=== PATIENT | female | born 1935 | race Caucasian/White ===

== ENCOUNTER 2018-01-13 09:42 | Emergency (ER) | payer OTHER, BC ==
[2018-01-13 10:16] VITALS: BP 150/76; PULSE 64; TEMP 97.8; BMI 31.2
--- NOTE | 2018-01-13 10:22 | PDOC ---
History of Present Illness - General History Source: Patient Exam Limitations: No Limitations - History of Present Illness Initial Comments: 01/13/18 10:20 The patient is an 82F, unsure of PMH but state she takes nitro and coumadin and has an "irregular heart beat" who presents to the ER after having a fall yesterday. The patient states that she was walking from her kitchen to her bathroom and fell forward, hitting her head and the R side of her body. SHe was unable to stand up. EMS was called and they helped her into her bed but she refused being taken to the hospital. Overnight, she states that her R rib pain has been getting worse. She denies LOC, CP, new SOB, lightheadedness, palpitations, nausea, vomiting, numbness, tingling, or weakness. <Jose Moore - Last Filed: 01/13/18 12:23> <Stephanie Walker - Last Filed: 01/13/18 12:45> - General Chief Complaint: Injury Stated Complaint: FALL Time Seen by Provider: 01/13/18 10:00 Past History - Past Medical History Cardiac Disorders: Yes (angina) COPD: Yes DVT: Yes (on coumadin) HTN: Yes Hypercholesterolemia: Yes Other medical history: meniers disease - Suicide/Smoking/Psychosocial Hx Smoking History: Never smoked Have you smoked in the past 12 months: No If you are a former smoker, when did you quit?: 1989 Information on smoking cessation initiated: No Hx Alcohol Use: No Drug/Substance Use Hx: No Substance Use Type: None <Jose Moore - Last Filed: 01/13/18 12:23> <Stephanie Walker - Last Filed: 01/13/18 12:45> - Past Medical History Allergies/Adverse Reactions: Allergies Allergy/AdvReac Type Severity Reaction Status Date / Time No Known Allergies Allergy Verified 01/13/18 10:02 Home Medications: Ambulatory Orders Albuterol Sulfate Inhaler - [Ventolin Hfa Inhaler -] 1 - 2 inh PO Q4H PRN Atorvastatin Ca [Lipitor] 20 mg PO HS 01/13/18 Cephalexin Monohydrate [Keflex -] 500 mg PO BID 5 Days #10 capsule MDD 1000mg Isosorbide Mononitrate [Imdur -] 60 mg PO DAILY 01/13/18 Lidocaine 5% Patch [Lidoderm Patch -] 1 patch TP DAILY #7 patch 01/13/18 Meclizine HCl [Antivert -] 25 mg PO DAILY 01/13/18 Nitroglycerin 0.4 mg SL [id number] 01/13/18 Omeprazole Magnesium [Prilosec Otc] 40 mg PO DAILY 01/13/18 Pantoprazole Sodium [Protonix] 40 mg PO DAILY 01/13/18 Warfarin Sodium [Coumadin] 3 mg PO DAILY 01/13/18 Zolpidem Tartrate [Ambien] 10 mg PO DAILY 01/13/18 Review of Systems - Review of Systems Able to Perform ROS?: Yes Comments:: 01/13/18 10:53 GENERAL/CONSTITUTIONAL: No fever or chills. No weakness. HEAD, EYES, EARS, NOSE AND THROAT: No change in vision. No ear pain or discharge. No sore throat. CARDIOVASCULAR: No chest pain, palpitations, or lightheadedness. RESPIRATORY: Positive for chronic SOB. No cough, wheezing, or hemoptysis. GASTROINTESTINAL: No nausea, vomiting, diarrhea, constipation, or abdominal pain. GENITOURINARY: No dysuria, frequency, hematuria, or change in urination. MUSCULOSKELETAL: Positive for R inferior and anterior rib pain. No neck or back pain. SKIN: No rash or lesions. NEUROLOGIC: No headache, numbness, tingling, weakness, loss of consciousness, or change in strength/sensation. ENDOCRINE: No increased thirst. No abnormal weight change. HEMATOLOGIC/LYMPHATIC: No anemia, easy bleeding, or history of blood clots. ALLERGIC/IMMUNOLOGIC: No hives or skin allergy. Is the patient limited Albanian proficient: No <Jose Moore - Last Filed: 01/13/18 12:23> *Physical Exam - Vital Signs Last Vital Signs Temp Pulse Resp BP Pulse Ox 97.8 F 64 26 H 150/76 98 01/13/18 09:47 01/13/18 09:47 01/13/18 09:47 01/13/18 09:47 01/13/18 09:47 - Physical Exam Comments: 01/13/18 10:56 GENERAL: Well developed, well nourished. Awake and alert. No acute distress. HEENT: Normocephalic, atraumatic. Hearing grossly normal. Moist mucous membranes. PERRLA, EOMI. No conjunctival pallor. Sclera are non-icteric. NECK: Supple. Full ROM. No JVD. CARDIOVASCULAR: Regular rate and rhythm. No murmurs, rubs, or gallops. PULMONARY: No evidence of respiratory distress. Lungs clear to auscultation bilaterally. No wheezing, rales or rhonchi. ABDOMINAL: Soft. Non-tender. Non-distended. No rebound or guarding. GENITOURINARY: No CVA tenderness bilaterally. MUSCULOSKELETAL: TTP over anterior inferior ribs. Normal range of motion at all joints. EXTREMITIES: No cyanosis. No clubbing. No edema. No calf tenderness or swelling. SKIN: Warm and dry. Normal capillary refill. No rashes. No jaundice. NEUROLOGICAL: Alert, awake, appropriate. Cranial nerves 2-12 intact. No deficits to light touch and temperature in face, upper extremities and lower extremities. 5/5 strength in deltoids, biceps, triceps, quadriceps, hamstrings, and gastrocnemius. Normal speech. PSYCHIATRIC: Cooperative. Good eye contact. Appropriate mood and affect. <Jose Moore - Last Filed: 01/13/18 12:23> - Vital Signs Last Vital Signs Temp Pulse Resp BP Pulse Ox 97.8 F 64 26 H 150/76 98 01/13/18 09:47 01/13/18 09:47 01/13/18 09:47 01/13/18 09:47 01/13/18 09:47 <Stephanie Walker - Last Filed: 01/13/18 12:45> Heart Score/ECG Review #1 General ECG Interpretation: Sinus Rhythm, Normal Rate, Normal Intervals, No acute ischemic changes Compared to previous ECG there are: Previous ECG unavail 01/13/18 10:57 NSR vent rate at 60 [place] 142 QRS 80 QTc 410 No JASON but sub 1mm STD noted in V4-6, unsure about acuity as she has no previous EKG <Jose Moore - Last Filed: 01/13/18 12:23> ED Treatment Course - LABORATORY CBC & Chemistry Diagram: 01/13/18 11:12 01/13/18 11:12 <Jose Moore - Last Filed: 01/13/18 12:23> - LABORATORY CBC & Chemistry Diagram: 01/13/18 11:12 01/13/18 11:12 - ADDITIONAL ORDERS Additional order review: Laboratory Results 01/13/18 01/13/18 01/13/18 11:12 11:12 10:50 PT with INR 17.90 H INR 1.58 H Sodium 141 Potassium 4.3 Chloride 106 Carbon Dioxide 26 Anion Gap 9 BUN 14 Creatinine 0.8 Creat Clearance w eGFR > 60 Random Glucose 91 Calcium 8.8 Total Bilirubin 0.6 AST 23 ALT 18 Alkaline Phosphatase 72 Creatine Kinase 84 Troponin I < 0.02 Total Protein 6.3 L Albumin 2.9 L Urine Color Ltyellow Urine Appearance Clear Urine pH 7.0 Ur Specific [place] 1.004 Urine Protein Negative Urine Glucose (UA) Negative Urine Ketones Negative Urine Blood Negative Urine Nitrite Negative Urine Bilirubin Negative Urine Urobilinogen Negative Ur Leukocyte Esterase 3+ H Urine WBC (Auto) 15 Urine RBC (Auto) <1 Ur Epithelial Cells Rare Urine Bacteria Moderate 01/13/18 11:12 RBC 4.27 MCV 93.2 MCHC 33.8 RDW 15.1 MPV 9.9 Neutrophils % 42.8 Lymphocytes % 45.5 H Monocytes % 10.1 Eosinophils % 1.2 Basophils % 0.4 <Stephanie Walker - Last Filed: 01/13/18 12:45> Medical Decision Making - Medical Decision Making 01/13/18 10:58 The patient is an 82F with an unsure PMH but includes "blood clots" on coumadin and "irregular heart beat" who presents to the ER after having a fall last night. She hit her head and has rib pain so I will image both. The patient's story was somewhat changing, so I am concerned for non-mechanical fall vs syncope. Pending labs and imaging. 01/13/18 12:23 Labs WNL, imaging negative. Will give pain control and d/c. <Jose Moore - Last Filed: 01/13/18 12:23> *DC/Admit/Observation/Transfer - Discharge Dispostion Decision to Admit order: No <Jose Moore - Last Filed: 01/13/18 12:23> <Stephanie Walker - Last Filed: 01/13/18 12:45> Diagnosis at time of Disposition: Chest wall pain UTI (urinary tract infection) Qualifiers: Urinary tract infection type: site unspecified Hematuria presence: without hematuria Qualified Code(s): N39.0 - Urinary tract infection, site not specified - Discharge Dispostion Disposition: HOME Condition at time of disposition: Stable - Prescriptions Prescriptions: Cephalexin Monohydrate [Keflex -] 500 mg PO BID 5 Days #10 capsule MDD 1000mg Lidocaine 5% Patch [Lidoderm Patch -] 1 patch TP DAILY #7 patch - Referrals Referrals: aGbriela Vazquez MD [Primary Care Provider] - - Patient Instructions Printed Discharge Instructions: DI for Urinary Tract Infection (UTI), How to Prevent Falls Additional Instructions: Please follow up with your primary care physician in 2-3 days. Please take tylenol as needed for pain. Please return to the ER if you have any signs or symptoms of chest pain, shortness of breath, uncontrollable fever, chills, nausea, vomiting, numbness, tingling, or weakness in any part of your body, changes in vision, or slurred speech. Please return to the ER if symptoms persist, worsen, or new symptoms arise. - Post Discharge Activity
[2018-01-13 11:02] LABS: URINE APPEARANCE CLEAR; URINE BILIRUBIN NEGATIVE (<2.0 mg/dL); URINE COLOR LTYELLOW; URINE GLUCOSE (UA) NEGATIVE (NEGATIVE); URINE KETONE NEGATIVE (NEGATIVE); URINE NITRITE NEGATIVE (NEGATIVE); URINE PROTEIN NEGATIVE (NEGATIVE); URINE UROBILINOGEN NEGATIVE mg/dL (0.2-1.0)
[2018-01-13 11:04] LABS: URINE LEUK ESTERASE 3+ (NEGATIVE)
[2018-01-13 11:06] LABS: EPI CELLS RARE /HPF (FEW); URINE BACTERIA MODERATE /hpf (NONE SEEN)
--- NOTE | 2018-01-13 11:19 | PDOC ---
Attending Attestation - Resident Resident Name: Jose Moore - ED Attending Attestation I have performed the following: I have examined & evaluated the patient, The case was reviewed & discussed with the resident, I agree w/resident's findings & plan - Medical Decision Making Joe - 82 YOF with unclear PMH but state she takes nitro and coumadin and has an "irregular heart beat" Presenting with mechanical fall yesterday, landed on right side of body. No head injury or LOC. complained of right sided chest wall pain. Initially refused EMS transport yesterday when called. Worsening sx overnight, due to worsening pain called EMS again. EKG with nonspecific TWI in III, no continuous lead changes or ischemic findings, sinus rhythm at 60 bpm. Normal intervals, no ST segment changes or elevations. vital signs stable wnl. no distress pain controlled with lidoderm patch and tylenol. CT head neg for injuries or bleed. CT chest neg for rib fx or hemothorax or PTX basic labs wnl, UA with signs of infection, treat as uncomplicated UTI with keflex x 5 days, f/u PCP and urine cx. able to ambulate w/o difficulty, gait stable, remains well appearing. Pt to be discharged in stable condition. Patient and family made aware of impression and plan, return precautions discussed (including but not limited to worsening pain or symptoms), fevers, or signs of infection, chest pain, respiratory distress, inability to tolerate oral intake, dehydration, syncope, or neurologic changes). Follow up with PMD and/or specialist as recommended, follow up information provided, take medications as instructed for duration of time. continue with supportive care, avoid triggers and precipitants. rx pain control regimen, no narcotics given fall risk 01/13/18 12:40 <Stephanie Walker - Last Filed: 01/13/18 12:40> - HPI HPI: 01/13/18 12:33 The patient is a 82 year old female, with a significant past medical history of hypertension, hyperlipidemia, angina, Meniere's disease, and DVT(on Coumadin), who presents to the emergency department s/p mechanical fall yesterday afternoon. The patient reports she was walking from her kitchen to her bathroom , when she lost her balance, fell forward, hit her head and landed on the right side of her body. She denies any other head injuries, changes in vision, nausea , vomiting, neck or back pain, numbness, tingling, or weakness. She reports mild right sided chest wall pain, but denies any shortness of breath, diaphoresis, or palpitations. She denies any other injuries. Allergies: NKDA Past Surgical History: None reported Social History: Non smoker. No ETOH or recreational drug use. - Physicial Exam PE: 01/13/18 12:34 General: Well appearing, awake and alert, NAD. GCS 15 HEENT: NCAT, PERRL, EOMI, clear conjunctiva, anicteric, moist mucous membranes , clear oropharynx, no oral lesions.. Airway patent, normal phonation Neck: neck supple, FROM, no JVD, LAD or masses Lungs: CTAB, normal and even respirations, no respiratory distress Heart: RRR, 2+ peripheral pulses throughout, no peripheral edema Chest: point tenderness over right anterior/lateral wall, no crepitus Abdomen: soft, NTND, no peritoneal signs. No CVAT Back: nontender, normal inspection and ROM. pelvis stable. MSK: no edema, PATRICK x4, ROM intact. No clubbing or cyanosis. normal bulk and tone. Neuro: alert, oriented appropriately; no focal neurologic deficits. SILT, 5/5 distal and prox strength in all extrem. Gait stable. Skin: warm and well perfused, cap refill <2 sec, normal color - Medical Decision Making 01/13/18 12:33 Documentation prepared by Yemi Fortune, acting as medical aide for Stephanie Walker MD. <Yemi Fortune - Last Filed: 01/13/18 12:43>
[2018-01-13 11:20] LABS: BASO % 0.4 % (0-2.0); EOS % 1.2 % (0-4.5); HEMATOCRIT 39.8 % (32.4-45.2); HEMOGLOBIN 13.5 GM/dL (10.7-15.3); LYMPH % 45.5 % (8-40); MCH 31.5 pg (25.7-33.7); MCHC 33.8 g/dl (32.0-36.0); MEAN CELL VOLUME 93.2 fl (80-96); MEAN PLT VOLUME 9.9 fl (7.5-11.1); MONO % 10.1 % (3.8-10.2); NEUT % 42.8 % (42.8-82.8); PLATELET COUNT 190 K/MM3 (134-434); RBC 4.27 M/mm3 (3.60-5.2); RDW 15.1 % (11.6-15.6); WHITE BLOOD COUNT 10.4 K/mm3 (4.0-10.0)
[2018-01-13 11:45] LABS: ALBUMIN 2.9 g/dl (3.4-5.0); ANION GAP 9 (8-16); BILIRUBIN,TOTAL 0.6 mg/dL (0.2-1.0); BLOOD UREA NITROGEN 14 mg/dL (7-18); CALCIUM 8.8 mg/dL (8.5-10.1); CHLORIDE 106 mmol/L (98-107); CO2 26 mmol/L (21-32); CREATININE 0.8 mg/dL (0.55-1.02); GLUCOSE,RANDOM 91 mg/dL (74-106); SGPT/ALT 18 U/L (12-78); SODIUM 141 mmol/L (136-145); TOT PROT 6.3 g/dl (6.4-8.2)
[2018-01-13 11:47] LABS: ALK PHOS 72 U/L (45-117)
[2018-01-13 11:49] LABS: INR 1.58 (0.82-1.09); PROTHROMBIN TIME (PATIENT) 17.9 SEC (9.7-13.0)
[2018-01-13 11:53] LABS: POTASSIUM 4.3 mmol/L (3.5-5.1); SGOT/AST 23 U/L (15-37)
[2018-01-13] MEDS ORDERED: ACETAMINOPHEN 325 MG TABLET (FP) PO ONE (12:22)
[2018-01-13] MEDS ORDERED: LIDOCAINE 5% TOPICAL PATCH TP ONE (12:22)
[2018-01-13] MEDS ORDERED: ACETAMINOPHEN 325 MG TABLET (FP) ONE (12:38)
[2018-01-13] MEDS ORDERED: LIDOCAINE 5% TOPICAL PATCH ONE (12:38)
[2018-01-13] MEDS ORDERED: LIDOCAINE PATCH REMOVAL MC SCH (22:00)
--- NOTE | 2018-01-14 14:18 | EKG ---
Test Reason : Blood Pressure : / mmHG Vent. Rate : 060 BPM Atrial Rate : 060 BPM P-R Int : 142 ms QRS Dur : 080 ms QT Int : 410 ms P-R-T Axes : 043 -06 005 degrees QTc Int : 410 ms NORMAL SINUS RHYTHM NONSPECIFIC ST ABNORMALITY ABNORMAL ECG NO PREVIOUS ECGS AVAILABLE Confirmed by Turner Kumar ([id number]) on 01/14/2018 2:18:03 PM Referred By: Confirmed By:Turner Kumar
== END 2018-01-13 12:43 | disposition home or self-care (01) ==
LOC: JER 09:42
DX: S09.8XXA Other specified injuries of head, initial encounter (principal); S29.8XXA Other specified injuries of thorax, initial encounter; W18.39XA Other fall on same level, initial encounter; Y93.01 Activity, walking, marching and hiking; Y92.091 Bathroom in other non-institutional residence as the place of occurrence of the external cause; Y99.8 Other external cause status; I20.9 Angina pectoris, unspecified; I10 Essential (primary) hypertension; J44.9 Chronic obstructive pulmonary disease, unspecified; E78.00 Pure hypercholesterolemia, unspecified; H81.09 Meniere's disease, unspecified ear; Z86.718 Personal history of other venous thrombosis and embolism; Z79.01 Long term (current) use of anticoagulants
CPT/HCPCS: 36415; 70450-TC; 71250-TC; 80053; 81003; 81015; 82550; 84484; 85025; 85610; 93005; 93010; 99282-25